=== PATIENT | female | born 2005 | race Caucasian/White ===

== ENCOUNTER 2024-10-18 05:27 | Emergency (ER) | payer OTHER, SELFPAY ==
[2024-10-18 05:35] VITALS: BP 111/73; PULSE 110; RESP 20; TEMP 37.6; O2SAT 98; BMI 21.1
[2024-10-18 06:16] LABS: PCR FLU A Negative PCR FLU A (Negative); PCR FLU B Negative PCR FLU B (Negative); SARS PCR* Negative SARS-CoV-2 (Negative)
[2024-10-18 06:46] LABS: Strep A DNA Probe* NOT DETECTED (Not Detectd)
--- NOTE | 2024-10-18 07:09 | ED_ITS ---
HPI - General Adult General Chief complaint: Sore Throat Stated complaint: sore throat Time Seen by Provider: 10/18/24 05:57 Source: patient Mode of arrival: ambulatory Limitations: no limitations History of Present Illness HPI narrative: 19-year-old female presents the emergency department with a 2 day history of sore throat. Tried taking 200 mg of ibuprofen at 11:00 p.m. last night with some mild improvement. She is still able to take down fluids but does feel like her throat is very swollen. No known sick contacts, no recent pertinent travel. She is from [employer], a local [employer] student. Not in any contact type sports. Has not tried any Tylenol. No nausea or vomiting. No abdominal symptoms. No prior history of similar symptoms this bad in the past. Reports past on medical history is notable for ADHD, does use Adderall p.r.n. but not regularly. No known drug allergies. Nonsmoker. Is in a romantic relationship in asks about exposure to her partner. ROS is notable for the HEENT symptoms as above only, otherwise denies times 12 systems. Related Data Previous Rx's ?Medication ?Instructions ?Recorded cyclobenzaprine 5 mg tablet 5 - 10 mg (1 - 2 x 5 mg) P O QHS 10/18/24 PRN muscle spasm #20 tabs prednisone 20 mg tablet 20 mg PO BID 5 days #10 tabs 10/18/24 Allergies Allergy/AdvReac Type Severity Reaction Status Date / Time No Known Drug Allergies Allergy Verified 10/18/24 05:37 [facility] Medical History No significant past medical history Surgical History No significant past surgical history Social History Smoking Status: Never smoker Second hand tobacco smoke exposure: No How often do you have a drink containing alcohol: never AUDIT-C Alcohol total score: 0 Non-prescribed substance use: denies use Exam Const: Vital Signs, click to edit/add: Vital Signs - 24 hr 10/18/24 05:35 Temperature 99.7 F H Pulse Rate [Right Pulse Oximeter] 110 H Respiratory Rate 20 Blood Pressure [Ri ght Upper Arm] 111/73 Pulse Oximetry 98 Oxygen Delivery Me thod Room Air Documenting provider has reviewed patient's vital signs: yes Common normals: no apparent distress General appearance: comfortable and well kempt Other: Friendly and cooperative, excellent historian. Does still appear well nourished well hydrated, nontoxic. HENMT: Common normals: normocephalic and moist oral mucous membranes Head and scalp: normocephalic Other: Tonsillar pillars are markedly erythematous, mildly edematous with august plaque right tonsil greater than left with 2+ tonsils consistent with mononucleosis. Eye: Common normals: conjunctivae normal General eye: normal appearance of both eyes Conjunctiva: conjunctiva(e) normal Neck & C-Spine: Other: Moderate anterior cervical and submandibular lymphadenopathy. Slightly tender. Resp: Common normals: normal respiratory effort and clear to auscultation bilaterally Effort & inspection: able to speak in complete sentences Auscultation: clear to auscultation bilaterally Cardio: Common normals: regular rate, regular rhythm, S1 normal heart sound, S2 normal heart sound and no murmurs Rate: regular rate Rhythm: regular rhythm Heart sounds: S1 normal and S2 normal GI: Common normals: Normal to inspection, nondistended, normoactive bowel sounds present, soft to palpation, non-tender, no hepatosplenomegaly and no masses Palpation: soft and no hepatosplenomegaly Extremity: Common normals: normal capillary refill Psych: Appearance: well kempt Attitude: engaged Activity/motor behavior: appropriate eye contact Attention/concentration: attention grossly intact Memory/cognition: memory grossly intact Insight: insight good Judgement: judgment good Skin: Common normals: no rashes or lesions noted General skin exam: no rashes or lesions noted Course Course ED Course: Rapid strep and viral swabs collected in triage per protocol. There was a delay in her assessment because the rapid strep test was inconclusive and had to be rerun. Thankfully these are all negative. Exam is highly suggestive of mononucleosis. Discussed with patient that I would do not necessarily recommend that we do blood testing as it is not particularly accurate in someone only symptomatic for 2 days. Rationale and signs are reviewed on this. At this point she is reasonably well hydrated and reports that she is urinating adequately and is able to take down fluids. Counseled patient on typical course of mononucleosis and how miserable it can be, especially when away from family and support system. I do recommend that we start some prednisone to help reduce her risk of swelling and inflammation and complications. She was agreeable to this. 40 mg p.o. x1 will be given here in the emergency room she will continue on 20 mg b.i.d. for 5 days. Stressed the importance of pushing fluids to the point where I even encourage setting an alarm on her phone for every 15 minutes while she is awake to take 3 oz of liquid. Fatigue is common. She may need to discuss with her academic affairs specialist if her symptoms are prolonged. Try to avoid body fluid contact for 10 days. General routine droplet exposures are fine. We discussed symptom management with Tylenol 1000 mg every 6 hours and ibuprofen 600 mg every 6 hours. I have also given her a small dose of cyclobenzaprine to use at bedtime p.r.n. to help with spasm and sleep. Discussed alarm symptoms that would warrant coming back to the ER, peritonsillar abscess, severe dehydration, severe weakness, etc.. She verbalizes understanding and agreement of this. Stressed again the importance of pushing fluids. Prescriptions for cyclobenzaprine and prednisone sent to pharmacy. Vital Signs Vital signs: Initial Vital Signs Respiratory Effort Normal, Spontaneous, Non-Labored 10/18/24 05:34 Respiratory Depth Normal 10/18/24 05:34 Respiratory Pattern Normal 10/18/24 05:34 Vital Signs Temperature 99.7 F H 10/18/24 05:35 Pulse Rate 110 H 10/18/24 05:35 Respiratory Rate 20 10/18/24 05:35 Blood Pressure 111/73 10/18/24 05:35 Pulse Oximetry 98 10/18/24 05:35 Oxygen Delivery Method Room Air 10/18/24 05:35 Temperature 99.7 F H 10/18/24 05:35 Pulse Rate 110 H 10/18/24 05:35 Respiratory Rate 20 10/18/24 05:35 Blood Pressure 111/73 10/18/24 05:35 Pulse Oximetry 98 10/18/24 05:35 Oxygen Delivery Method Room Air 10/18/24 05:35 Medical Decision Making Lab Data Lab results reviewed: Yes I reviewed the patient's lab results Lab results narrative: Negative, as expected, exam suspicious for mononucleosis Labs: Lab Results 10/18/24 Range/Units 05:34 SARS-CoV-2 (PCR) Negative SARS-CoV-2 (Negative) Influenza Type A (PCR) Negative PCR FLU A (Negative) Influenza Type B (PCR) Negative PCR FLU B (Negative) Group A Strep DNA NOT DETECTED (Not Detectd) Discharge Plan Discharge Clinical Impression: Mononucleosis Patient Disposition: Home, Self-Care Condition: Stable Instructions: Mononucleosis (ED) Additional Instructions: As we discussed, your swab for strep and COVID are negative. Your exam is highly consistent with mononucleosis. There is a characteristic august necrotic pattern with severe redness and lymphadenopathy that are the Hallmark of this illness and you could literally be in a textbook without classic your throat looks. As we discussed, there are blood tests available for mono but they are not very good. The rapid test looks for something called IgG in the blood and this does not tend to turn positive until days 5-10 of illness and is really only about 80-85% effective even in that time when no, closer to only 25% effective for you at this duration of illness. There is a send out test but it will be back for a week and it will not change our management in any way. This is caused by a virus and will only take time to clear. Unfortunately, the virus can be very symptomatic to the point where it can cause dehydration and sometimes even secondary bacterial infections and abscesses in the 2nd week if someone is not keeping well hydrated. Upper abdominal pain and nausea can be common as well but sore throat tends to be the most prominent symptom in the 1st 5-7 days. We have started you on prednisone, you will take this twice daily for 5 days. It is best not to take your evening dose within 4 hours of bedtime but a me more for move mid morning and late afternoon. Try to take it with food to reduce stomach upset. It is critically important that you are pushing fluid. I often recommend that students set an alarm on their phone every 15 minutes with the plan to drink 3 oz of fluid every 15 minutes while they are awake. This will help reduce your risk of dehydration and complications. Aim for at least 60 oz of water per day. You will not tolerate scratchy, rough foods. Aim for very soft foods like milk shakes, putting, mashed potatoes, smoothies. For most people, symptoms get markedly better after about a week but then they tend to have some lingering abdominal and fatigue symptoms that can last a few more weeks. Try to avoid body fluid contact with other people for the next 10 days to reduce the risk of spread though any close personal contacts may have already been exposed. If the pain becomes very severe and you have been unable to hold down any liquids and you are truly miserable, you can always come back to the ER or urgent care preferably for IV fluids. You are also going to have to be aggressive with pain control by taking Tylenol 1000 mg every 6 hours and adding an ibuprofen 600 mg every 6 hours if the Tylenol is not cutting your pain. I have also given you a muscle relaxant to use at bedtime called cyclobenzaprine that many people find helpful at reducing some of the spasm in the throat and also helping them sleep. It tends to cause fatigue so recommend reserving it for bedtime only. Activity Level: Activity as Tolerated Discharge Diet: Regular Prescriptions: New prednisone 20 mg tablet 20 mg PO BID 5 Days Qty: 10 0RF cyclobenzaprine 5 mg tablet 5 - 10 mg PO QHS PRN (Reason: muscle spasm) Qty: 20 0RF Stand Alone Forms: [employer] Info Instructions
[2024-10-18] MEDS: ACETAMINOPHEN 500 MG TABLET 1000 MG PO (07:14)
[2024-10-18] MEDS: KETOROLAC 10 MG TABLET PO (07:14)
--- OUTSIDE RECORDS SUMMARY | 2024-10-18 07:21 | XMS_ITS | Clinical Summary ---
Author Organization [facility] Address [address] [place] [id number] Care Team Providers Care Ginger Farmer Name Role Phone Pcp, No Primary Care Provider Unavailabl e Allergies No known active allergies Medications methylphenidate (Concerta) 18 mg extended-release tabletIndications: Attention deficit hyperactivity disorder (ADHD), combined type Take 1 Tablet (18 mg) by mouth once daily. 30 Tablet Active Active Problems Problem Noted Date Diagnosed Date Attention deficit hyperactiv ity disorder (ADHD), combined type 06/28/2023 Anxiety 06/28/2023 Immunizations Immunization Administration Dates Next Due Dtap-5 Pertussis Antigens 03/02/2007,,11/20/2004,2004,2003 HIB PRP-T (ActHIB,Hiberix) 06/11/2004,2003 HPV 9 (Gardasil 9) 11/25/2022 Hep B (Hepatitis B (Adult) Recombinant Adjuvanted) 11/13/2022 Hepatitis A (Peds) 09/15/2012,06/09/2011 Hepatitis B (Peds) 11/20/2004,06/11/2004, 004 Inactivated Polio Vaccine 03/02/2007,,06/11/2004,2003 MMR 03/02/2007,06/11/2004 Pneumococcal Conjugate, Unsp ecified Formulation 11/20/2004,06/11/2004,2003 Tdap 05/08/2021 Varicella Vaccine 03/02/2007,06/11/2004 Family History Medical History Relation Name Comments Crohn's disease Father Lupus Mother Relation Name Status Comments Father Mother Social History Tobacco Use Types Packs/Day Years Used Date Smoking Tobacco: Never Smokeless Tobacco: Never Tobacco Cessation:Counseling Given: Not Answered Alcohol Use Standard Drinks/Week Comments Never 0 (1 standard drink = 0.6 oz pur e alcohol) PHQ-2 Answer Date Recorded PHQ-2 TOTAL SCORE 3 06/28/2023 Social Connections Answer Date Recorded Frequency of Communication with Friends and Fami ly 0 11/25/2022 Financial Resource Strain Answer Date R ecorded Difficulty of Paying Living Expenses 3 11/25/2022 Difficulty of Paying Living Expenses Not on file 11/25/2022 Food Insecurity Answer Date Recorded Worried About Running Out of Food in the Last Ye ar 1 11/25/2022 Transportation Needs Answer Date Record ed Lack of Transportation (Medical) 1 11/25/2022 Housing Stability Answer Date Recorded Unable to Pay for Housing in the Last Year 1 11/25/2022 Comments No Sex and Gender Information Value Date Recorded Sex Assigned at Not on file Legal Sex Female 8:50 AM CDT Gender Identity Not on file Sexual Orientation Not on file Obstetrics History Last Filed Vital Signs Vital Sign Reading Time Taken Comments Blood Pressure 124/76 06/28/2023 9:53 AM CDT Pulse 60 06/28/2023 9:53 AM CDT Temperature - - Respiratory Rate - - Oxygen Saturation 97% 11/25/2022 8:25 AM CDT Inhaled Oxygen Concentration - - Weight 65.1 kg (143 lb 8 oz) 06/28/2023 9:53 AM CDT Height 168.9 cm (5' 6.5) 06/28/2023 9:53 AM CDT Body Mass Index 22.81 06/28/2023 9:53 AM CDT Plan of Treatment Health Maintenance Due Date Last Done Comments HIV for age 15-65 2018 Chlamydia for age 16-24 2019 Hepatitis C screening for age 18-79 2021 HPV series for age 9-26 (2 - 3-dose series) 12/23/2022 11/25/2022 COVID-19 vaccine series ( season) 2023 10/02/2020, 09/08/2020 Pap test for age 21-65 01/26/2024 BMI (ht and wt on same day) for age 18+ 06/27/2024 06/28/2023, 11/25/2022 Depression screening for age 12+ 06/29/2024 06/30/2023, 06/29/2023, 06/28/2023, Additional history exists Influenza Vaccine (#1) 2024 Tetanus booster 05/09/2031 05/08/2021 Pneumococcal series for age 6-49 Aged Out 11/20/2004, 06/11/2004, 2003 No longer eligible based on patient's age to complete this topic Hepatitis B series for 19+ Completed 11/13, 11/20/2004, 06/11/2004, Additional history exists Meningococcal series for age 11-21 Aged Out No longer eligible based on patient's age to complete this topic Insurance [facility] PP Care Teams Ginger Farmer Relationship Specialty Start Date End Date Pcp, No . PCP - General 11/22/22
== END 2024-10-18 07:28 | disposition home or self-care (01) ==
LOC: ED 07:18
PROVIDERS: Emergency Provider Family Medicine
DX: B27.90 Infectious mononucleosis, unspecified without complication (principal); J02.9 Acute pharyngitis, unspecified
CPT/HCPCS: 87631; 87651; 99283; A9270; J7512